=== PATIENT | male | born 1940 | race Caucasian/White ===

== ENCOUNTER 2018-12-13 20:32 | Emergency (ER) | payer OTHER ==
[~2018-12-13] VITALS: Ht 157.5 cm; Wt 68.5 kg
[2018-12-13 20:41] VITALS: BP 129/81
--- NOTE | 2018-12-13 20:44 | NUR ---
TO LOBBY A/W BED AMBULATORY
[2018-12-13] MEDS ORDERED: AMLO2.5T2 PO (20:50)
[2018-12-13] MEDS ORDERED: ATOR40TA PO (20:50)
[2018-12-13] MEDS ORDERED: CEPH250C16 PO (20:50)
[2018-12-13] MEDS ORDERED: HYDR12.516 PO (20:50)
[2018-12-13] MEDS ORDERED: CLOP75TA26 PO (20:50)
[2018-12-13] MEDS ORDERED: TAMS0.4C96 PO (20:50)
[2018-12-13] MEDS ORDERED: LOSA50TA66 PO (20:50)
--- NOTE | 2018-12-13 21:45 | NUR ---
78 Y/O M BIB DAUGHTER WITH C/O URINARY BURNING X4 DAYS. AWAKE AND ALERT, TAJIK SPEAKING ONLY. 8/10 BURNING PAIN. PER PT DAUGHTER PT HAD A STROKE [id number] AGO AND LUI WAS INSERTED DUE TO URINARY INCONTINENCE. URINE OUTPUT IN COLLECTION BAG YELLOW. DAUGHTER AT BEDSIDE. BED IN LOWEST POSTION. BEDRAILX1 UP. ERMD NOTIFIED OF PT STATUS. WILL CONTINUE TO MONITOR.
--- NOTE | 2018-12-13 21:45 | NUR ---
PT AMBULATED TO BED 02 WITH STEADY GAIT. DAUGHTER ACCOMPANYING.
--- NOTE | 2018-12-13 22:30 | NUR ---
Prior isaacs catheter removed before insertion of new catheter. #[id number] Isaacs catheter inserted utilizing sterile technique. Immediate return of approximately 100 ml of yellow urine noted. During insertion blood noted at uretha and some resistance felt. Bedside drainage bag placed below level of bladder. Urine sample collected and sent to lab. Pt tolerated procedure well.
[2018-12-13 23:23] VITALS: BP 150/81
--- NOTE | 2018-12-13 23:24 | NUR ---
Patient discharged with v/s stable. Written and verbal after care instructions given and explained. Patient alert, oriented and verbalized understanding of instructions. Ambulatory with steady gait. All questions addressed prior to discharge. ID band removed. Patient advised to follow up with PMD. Rx of LIDYA MOLINA given. Patient educated on indication of medication including possible reaction and side effects. Opportunity to ask questions provided and answered.
== END 2018-12-13 23:23 | disposition home or self-care (01) ==
LOC: MED 20:32
DX: N39.0 Urinary tract infection, site not specified (principal); I10 Essential (primary) hypertension; E78.5 Hyperlipidemia, unspecified; N40.0 Benign prostatic hyperplasia without lower urinary tract symptoms; Z79.899 Other long term (current) drug therapy
CPT/HCPCS: 51702; 81002; 87086; 87186; 99284